=== PATIENT | male | born 1945 | race Two or more races ===

== ENCOUNTER 2018-10-13 13:08 | Inpatient (IN) | payer OTHER, MEDICAID ==
[2018-10-13] MEDS ORDERED: NS 1,000 ML IV ONE (13:17)
--- NOTE | 2018-10-13 13:17 | EDPHY ---
H & P Time Seen by Provider: 10/13/18 13:08 HPI/ROS: CHIEF COMPLAINT: Altered mental status HISTORY OF PRESENT ILLNESS: History from EMS on arrival is patient is nonverbal. Apparently has a history of some type of recent back procedure, has been unresponsive and febrile since yesterday. Has a most form stating DNR and comfort care measures only. Family is not with the patient on arrival. Remainder of history and review of systems unavailable on arrival because the patient is nonverbal. PAST MEDICAL HISTORY: Per records which arrive include TIA and stroke, vertebral compression fracture, left-sided rib fractures, some other type of pelvis fracture Social history: [facility] resident General Appearance: Unresponsive, nonverbal, opens eyes to voice. No words. Eyes: No scleral icterus. ENT, Mouth: Normal mucous membranes. Respiratory: Hypoxic, coarse breath sounds bilaterally. Cardiovascular: Regular rate and rhythm. Tachycardic. Gastrointestinal: Abdomen is soft and non tender. Neurological: Patient is nonverbal, opens eyes to voice. Withdraws to pain. Skin: Warm and dry, no rashes. Do not see any evidence of open wounds on the back or redness or decubitus ulcer on the sacral area or on either leg. Musculoskeletal: No peripheral edema. Psychiatric: Unable, nonverbal. Emergency Department course/MDM: Febrile tachycardic and hypoxemic. Plan for i-STAT Chem 8, labs, chest x-ray. Will discuss goals of care with family when they arrive. 1344: Discussion with both daughters were present in the room at this time. They are in agreement that we should honor the patient's wishes on his MOST form , they are also of the opinion that we should make him comfortable but to not do any medical or surgical interventions at this time, not attempt to try and reverse or cure his current illness. We discussed he has multisystem organ failure, likely an acute pneumonia or pulmonary infection. They are aware that by making this decision for comfort care, my clinical impression is that he will have a high likelihood to of his illness during this hospitalization. Constitutional: Initial Vital Signs Temperature (C) 37.8 C 10/13/18 13:12 Heart Rate 141 H 10/13/18 13:12 Respiratory Rate 18 10/13/18 13:12 Blood Pressure 119/96 H 10/13/18 13:12 O2 Sat (%) 94 10/13/18 13:12 O2 Delivery Mode Non-Rebreather Mask O2 (L/minute) 15 Allergies/Adverse Reactions: No Known Allergies Allergy (Unverified 10/13/18 13:12) Medical Decision Making - Diagnostics EKG Interpretation: 12-lead EKG interpreted by me; official reading is in computer system. My interpretation is sinus tachycardia with anterior Q-waves noted and nonspecific repolarization abnormality. Imaging Results: Imaging Impressions Chest X-Ray 10/13/18 13:17 Impression: 1. Left lower lobe consolidation/pneumonia with mild left effusion. 2. Peribronchial cuffing in the perihilar region. Findings are nonspecific but can be seen with bronchitis, viral process, or reactive airways disease. Imaging: I viewed and interpreted images myself Differential Diagnosis: Differential for altered mental status considered including but not limited to sepsis, stroke, intracranial bleed or mass, metabolic or hypoglycemia. Consult/Admit Bed Type: [facility] for Dr. Huston [facility] - Data Points Laboratory Results: Laboratory Results 10/13/18 13:20 10/13/18 13:20 10/13/18 10/13/18 10/13/18 13:38 13:20 13:20 WBC RBC Hgb POC Hgb 15.3 gm/dL gm/dL (13.7-17.5) Hct POC Hct 45 % % (40-51) MCV MCH MCHC RDW Plt Count MPV Neut % (Auto) Lymph % (Auto) [place] % (Auto) Eos % (Auto) Baso % (Auto) Nucleat RBC Rel Count Absolute Neuts (auto) Absolute Lymphs (auto) Absolute Monos (auto) Absolute Eos (auto) Absolute Basos (auto) Absolute Nucleated RBC Immature Gran % Immature Gran # Platelet Estimate VBG Lactic Acid 2.8 mmol/L H mmol/L (0.7-2.1) POC Sodium 139 mEq/L mEq/L (135-145) Sodium 136 mEq/L mEq/L (135-145) POC Potassium 4.2 mEq/L mEq/L (3.3-5.0) Potassium 4.5 mEq/L mEq/L (3.5-5.2) POC Chloride 105 mEq/L mEq/L (97-110) Chloride 104 mEq/L mEq/L (97-110) Carbon Dioxide 19 mEq/l L mEq/l (22-31) POC Total CO2 21 mEq/L L mEq/L (22-31) Anion Gap 13 mEq/L mEq/L (6-14) POC BUN 31 mg/dL H mg/dL (7-23) BUN 33 mg/dL H mg/dL (7-23) Creatinine 2.6 mg/dL H mg/dL (0.7-1.3) POC Creatinine 3.1 mg/dL H mg/dL (0.7-1.3) Estimated GFR 24 Glucose 91 mg/dL mg/dL (70-100) POC Glucose 97 mg/dL mg/dL (70-100) Calcium 8.6 mg/dL mg/dL (8.5-10.4) 10/13/18 10/13/18 13:20 13:20 WBC 12.44 10^3/uL H 10^3/uL (3.80-9.50) RBC 5.09 10^6/uL 10^6/uL (4.40-6.38) Hgb 14.6 g/dL g/dL (13.7-17.5) POC Hgb Hct 45.5 % % (40.0-51.0) POC Hct MCV 89.4 fL fL (81.5-99.8) MCH 28.7 pg pg (27.9-34.1) MCHC 32.1 g/dL L g/dL (32.4-36.7) RDW 15.5 % H % (11.5-15.2) Plt Count 371 10^3/uL 10^3/uL (150-400) MPV 9.1 fL fL (8.7-11.7) Neut % (Auto) Pending Lymph % (Auto) Pending [place] % (Auto) Pending Eos % (Auto) Pending Baso % (Auto) Pending Nucleat RBC Rel Count Pending Absolute Neuts (auto) Pending Absolute Lymphs (auto) Pending Absolute Monos (auto) Pending Absolute Eos (auto) Pending Absolute Basos (auto) Pending Absolute Nucleated RBC Pending Immature Gran % Pending Immature Gran # Pending Platelet Estimate Pending VBG Lactic Acid 3.8 mmol/L H mmol/L (0.7-2.1) POC Sodium Sodium POC Potassium Potassium POC Chloride Chloride Carbon Dioxide POC Total CO2 Anion Gap POC BUN BUN Creatinine POC Creatinine Estimated GFR Glucose POC Glucose Calcium Medications Given: Discontinued Medications Sodium Chloride (Ns) 1,000 mls @ 0 mls/hr IV EDNOW ONE; Wide Open PRN Reason: Protocol Stop: 10/13/18 13:18 Last Admin: 10/13/18 13:25 Dose: 1,000 mls Point of Care Test Results: Chemistry 10/13/18 13:20 POC Sodium 139 mEq/L mEq/L (135-145) POC Potassium 4.2 mEq/L mEq/L (3.3-5.0) POC Chloride 105 mEq/L mEq/L (97-110) POC Total CO2 21 mEq/L L mEq/L (22-31) POC BUN 31 mg/dL H mg/dL (7-23) POC Creatinine 3.1 mg/dL H mg/dL (0.7-1.3) POC Glucose 97 mg/dL mg/dL (70-100) ISTAT H&H 10/13/18 13:20 POC Hgb 15.3 gm/dL gm/dL (13.7-17.5) POC Hct 45 % % (40-51) Departure - Departure Disposition: [facility] Inpatient Acute Clinical Impression: Acute encephalopathy, Acute kidney injury Pneumonia Qualifiers: Pneumonia type: due to unspecified organism Laterality: left Lung location: lower lobe of lung Qualified Code(s): J18.1 - Lobar pneumonia, unspecified organism Condition: Serious
[2018-10-13 13:30] LABS: PLATELET COUNT 371 10^3/uL (150-400)
--- NOTE | 2018-10-13 13:48 | CPEKG ---
Test Reason : OPEN Blood Pressure : / mmHG Vent. Rate : 143 BPM Atrial Rate : 143 BPM P-R Int : 107 ms QRS Dur : 070 ms QT Int : 344 ms P-R-T Axes : -18 049 077 degrees QTc Int : 531 ms Sinus tachycardia Atrial premature complex Anteroseptal infarct, old Repolarization abnormality, prob rate related Prolonged QT interval Confirmed by Kirk Singleton ([id number]) on 10/13/2018 1:47:41 PM Referred By: KIRK SINGLETON Confirmed By:Kirk Singleton
[2018-10-13] MEDS ORDERED: SCOPOLAMINE HYDROBROMIDE 1 MG/3 DAYS PATCH TD ONE (14:19)
[2018-10-13] MEDS ORDERED: LORazepam 2 MG/ML INJ IVP PRN (15:31)
[2018-10-13] MEDS ORDERED: morphINE 10 MG/0.5 ML UDSYR PO PRN (15:31)
[2018-10-13] MEDS ORDERED: ONDANSETRON 4 MG/2 ML VIAL IVP PRN (15:31)
[2018-10-13] MEDS ORDERED: LORazepam 1 MG TAB PO PRN (15:31)
[2018-10-13] MEDS ORDERED: ONDANSETRON DISINTEGRATING 4 MG TAB PO PRN (15:31)
[2018-10-13] MEDS ORDERED: SCOPOLAMINE HYDROBROMIDE 1 MG/3 DAYS PATCH TD PRN (15:31)
[2018-10-13] MEDS ORDERED: HALOPERIDOL LACT 5 MG/ML INJ IVP PRN (15:31)
--- NOTE | 2018-10-13 15:38 | PDGENHP ---
History and Physical - Chief Complaint Encephalopathy - History of Present Illness 73 yo male custodial patient arrives with confusion, fever, and minimal responsiveness. Has a most form stating DNR and comfort care measures only. He is here with his 2 daughters. His eldest daughter is the medical POA per their communication to me. The pt's family goals are to keep him comfortable. He does not follow commands. He can open his eyes. Translation is provided by the [facility]. He denies pain or discomfort. He has increased work of breathing. Discussion with both daughters were present in the room at this time. They are in agreement that we should honor the patient's wishes on his MOST form, they are also of the opinion that we should make him comfortable but to not do any medical or surgical interventions at this time, not attempt to try and reverse or cure his current illness. PAST MEDICAL HISTORY: TIA and stroke, vertebral compression fracture, left- sided rib fractures, some other type of pelvis fracture Social history: [facility] resident FmHx: non contributory History Information - Allergies/Home Medication List Allergies/Adverse Reactions: No Known Allergies Allergy (Unverified 10/13/18 13:12) Home Medications: Acetaminophen [Tylenol 325mg (*)] 650 mg PO TID 10/13/18 [Last Taken Unknown] DULoxetine [Cymbalta 30 MG (*)] 30 mg PO DAILY 10/13/18 [Last Taken Unknown] Gabapentin [Neurontin 100 MG (*)] 200 mg PO TID 10/13/18 [Last Taken Unknown] Lidocaine 4%/Menthol 1% [Icy Hot Lidocaine/Menthol 4%/1% Patch (*)] 1 patch TD DAILY 10/13/18 [Last Taken Unknown] Naproxen Sodium [Naprelan] 500 mg PO BID 10/13/18 [Last Taken Unknown] Sennosides/Docusate Sodium [Senna-Docusate Sodium Tablet] 1 each PO BID [Last Taken Unknown] oxyCODONE IR [Oxycodone Ir (*)] 5 mg PO Q3HRS PRN 10/13/18 [Last Taken Unknown] I have personally reviewed and updated: medical history, social history Review of Systems Review of Systems: ROS: 10pt was reviewed & negative except for what was stated in HPI & below Physical Exam Physical Exam: Temp Pulse Resp BP Pulse Ox 38.2 C 133 H 18 89/53 L 88 L 10/13/18 14:56 10/13/18 14:56 10/13/18 14:56 10/13/18 14:56 10/13/18 14:56 O2 (L/minute) 10 Constitutional: no apparent distress, chronically ill appearing Eyes: PERRL, EOMI Ears, Nose, Mouth, Throat: dry mucous membranes Cardiovascular: tachycardia, edema Respiratory: respiratory distress Gastrointestinal: normoactive bowel sounds, soft, non-tender abdomen Skin: warm Neurologic: No AAOx3 Psychiatric: interacting appropriately, not anxious, encephalopathic Lymph, Heme, Immunologic: No petechiae Lab Data & Imaging Review 10/13/18 13:20 10/13/18 13:20 WBC 12.44 10^3/uL (3.80-9.50) H 10/13/18 13:20 RBC 5.09 10^6/uL (4.40-6.38) 10/13/18 13:20 Hgb 14.6 g/dL (13.7-17.5) 10/13/18 13:20 POC Hgb 15.3 gm/dL (13.7-17.5) 10/13/18 13:20 Hct 45.5 % (40.0-51.0) 10/13/18 13:20 POC Hct 45 % (40-51) 10/13/18 13:20 MCV 89.4 fL (81.5-99.8) 10/13/18 13:20 MCH 28.7 pg (27.9-34.1) 10/13/18 13:20 MCHC 32.1 g/dL (32.4-36.7) L 10/13/18 13:20 RDW 15.5 % (11.5-15.2) H 10/13/18 13:20 Plt Count 371 10^3/uL (150-400) 10/13/18 13:20 MPV 9.1 fL (8.7-11.7) 10/13/18 13:20 Neut % (Auto) Not Reported 10/13/18 13:20 Lymph % (Auto) Not Reported 10/13/18 13:20 [place] % (Auto) Not Reported 10/13/18 13:20 Eos % (Auto) Not Reported 10/13/18 13:20 Baso % (Auto) Not Reported 10/13/18 13:20 Nucleat RBC Rel Count Not Reported 10/13/18 13:20 Absolute Neuts (auto) Not Reported 10/13/18 13:20 Absolute Lymphs (auto) Not Reported 10/13/18 13:20 Absolute Monos (auto) Not Reported 10/13/18 13:20 Absolute Eos (auto) Not Reported 10/13/18 13:20 Absolute Basos (auto) Not Reported 10/13/18 13:20 Absolute Nucleated RBC Not Reported 10/13/18 13:20 Immature Gran % Not Reported 10/13/18 13:20 Seg Neutrophils % 50.0 % 10/13/18 13:20 Band Neutrophils % 5.0 % 10/13/18 13:20 Lymphocytes % 39.0 % 10/13/18 13:20 Monocytes % 4.0 % 10/13/18 13:20 Eosinophils % 0.0 % 10/13/18 13:20 Basophils % 2.0 % 10/13/18 13:20 Metamyelocytes % 0.0 % 10/13/18 13:20 Myelocytes % 0.0 % 10/13/18 13:20 Promyelocytes % 0.0 % 10/13/18 13:20 Blast Cells % 0.0 % 10/13/18 13:20 Immature Gran # Not Reported 10/13/18 13:20 Absolute Seg Neuts 6.22 10^3/uL (1.70-6.50) 10/13/18 13:20 Absolute Band Neuts 0.62 10^3/uL (0.00-0.70) 10/13/18 13:20 Absolute Lymphocytes 4.85 10^3/uL (1.00-3.00) H 10/13/18 13:20 Absolute Monocytes 0.50 10^3/uL (0.30-0.80) 10/13/18 13:20 Absolute Eosinophils 0.00 10^3/uL (0.03-0.40) L 10/13/18 13:20 Absolute Basophils 0.25 10^3/uL (0.02-0.10) H 10/13/18 13:20 Absolute Metamyelocyte 0.00 10^3/mL (0.00-0.00) 10/13/18 13:20 Absolute Myelocytes 0.00 10^3/mL (0.00-0.00) 10/13/18 13:20 Absolute Promyelocytes 0.00 10^3/uL (0.00-0.00) 10/13/18 13:20 Absolute Plasma Cells 0.00 10^3/uL (0.00-0.00) 10/13/18 13:20 Differential Comment SEE COMMENT 10/13/18 13:20 Absolute Blast Cells 0.00 10^3/uL (0.00-0.00) 10/13/18 13:20 Plasma Cells % 0.0 % 10/13/18 13:20 Platelet Estimate ADEQUATE (ADEQ) 10/13/18 13:20 Polychromasia 1+ H 10/13/18 13:20 VBG Lactic Acid 2.8 mmol/L (0.7-2.1) H 10/13/18 13:38 POC Sodium 139 mEq/L (135-145) 10/13/18 13:20 Sodium 136 mEq/L (135-145) 10/13/18 13:20 POC Potassium 4.2 mEq/L (3.3-5.0) 10/13/18 13:20 Potassium 4.5 mEq/L (3.5-5.2) 10/13/18 13:20 POC Chloride 105 mEq/L (97-110) 10/13/18 13:20 Chloride 104 mEq/L (97-110) 10/13/18 13:20 Carbon Dioxide 19 mEq/l (22-31) L 10/13/18 13:20 POC Total CO2 21 mEq/L (22-31) L 10/13/18 13:20 Anion Gap 13 mEq/L (6-14) 10/13/18 13:20 POC BUN 31 mg/dL (7-23) H 10/13/18 13:20 BUN 33 mg/dL (7-23) H 10/13/18 13:20 Creatinine 2.6 mg/dL (0.7-1.3) H 10/13/18 13:20 POC Creatinine 3.1 mg/dL (0.7-1.3) H 10/13/18 13:20 Estimated GFR 24 10/13/18 13:20 Glucose 91 mg/dL (70-100) 05/29/19 13:20 POC Glucose 97 mg/dL (70-100) 10/13/18 13:20 Calcium 8.6 mg/dL (8.5-10.4) 10/13/18 13:20 Assessment & Plan Assessment: #Acute encephalopathy #Acute kidney injury #Pneumonia #Acute Respiratory Failure #Multiorgan Failure #Sepsis Plan: The pt is critically ill. He has a MOST form indicating comfort care measures only and DNR. I had a long discussion with the family. They requested that we make him comfortable. They also asked if we could treat his infection. We discussed what that would look like including IV abx, IVF fluids, Pressors, Central line, and likely intubation. After some thoughts, the pt's family and medical POA agrees to honor the MOST form. They are in agreement with comfort care only. Palliative Care Hospice consult
--- NOTE | 2018-10-13 16:19 | ASMTCMCOM ---
CM Note CM Note Notes: Pt presented to the ED via EMS from [facility] for AMS. Pt's MOST form states pt wishes to receive Comfort Measures only but pt's daughters, Annia and Xiomy, wanted the pt transported to the ED. Annia Pate ([phone]) and her sister, Breann Harris "Xiomy" Herlinda ([phone]) arrived to the ED and was met by CM in the ED waiting area. ED Provider Dr Banks spoke w/Annia and Xiomy at bedside re:pt's poor prognosis. Annia and Xiomy are understandably emotionally upset and in shock, stating the pt "was fine yesterday" and needing to have comfort care measures and plan of care reiterated frequently. CM offered to provide interpretative services throughout the ED visit but Annia and Xiomy declined and said they would let us know if they didn't understand something. Ultimately Annia and Xiomy have decided to honor the pt's MOST form wishes and provide comfort care only. CM provided emotional support and various assistance as needed. Pt recently was admitted to [facility] from [facility] about a week ago. Pt was living w/Annia in [place] prior to moving into [facility]. Pt had also visited [place] recently (which he has been doing a couple of times a year; he has a brother who lives there) before getting admitted to [facility] a few weeks ago. Per Annia pt has had multiple falls while visiting in [place]. Xiomy lives in [place] and has a returning flight tonight but plans on canceling it; Xiomy aware that if she needs an airline excuse letter to please let CM, RN or the Hospitalist know. CM offered to have Spiritual Services come and provide them w/additional emotional support, etc. but Annia and Xiomy both declined at this time. The pt, Annia and Xiomy are [employer] and aware that our Spiritual Services team can provide [employer] prayers, support, etc. They say they will reach out if they change their mind. CM called [facility] and notified them of pt's admission for comfort care. Spoke w/Rogelio and she states that they would be able to offer and assist with coordinating pt's return to as [facility] w[facility] if needed. CM to follow. Date Signed: 10/13/2018 04:17 PM Electronically Signed By:Nubia Green RN
--- NOTE | 2018-10-13 19:32 | PDMN ---
Medical Necessity Medical necessity: Pt meets IP criteria per MD & MCG M-160; est los >2 mn for eval/tx of sepsis due to pneumonia w/multiple organ failure; pt critically ill; admit for comfort care measures & Hospice consult; per H&P & order 10/13/18
[2018-10-13 21:57] VITALS: BP 74/50
--- NOTE | 2018-10-14 02:56 | HOSPPROG ---
Hospitalist Progress Note Assessment/Plan: Patient admitted critically ill with pneumonia. He was a DNR. Patient time of reported 0243 Per RN patient advent requires body remain untouched for 8-12 hours, corner notified. Objective: Vital Signs Temp Pulse Resp BP Pulse Ox 39.9 C H 144 H 18 74/50 L 93 10/13/18 20:00 10/13/18 20:00 10/13/18 20:00 10/13/18 20:00 10/13/18 20:00 10/12/18 10/13/18 10/14/18 05:59 05:59 05:59 Intake Total 3500 Output Total 0 Balance 3500 ICD10 Worksheet Patient Problems: Problems Problem Status Onset Acute encephalopathy Acute Acute kidney injury Acute Pneumonia Acute
--- NOTE | 2018-10-14 13:30 | PDDCSUM ---
Discharge Summary Discharge Summary: this is a 73 yo male who was admitted on comfort care for pain and symptom management. He had pneumonia, sepsis, and multiorgan failure on admission. The pt had a MOST form indicating comfort measures only and DNR. This was confirmed with the pt's family and his medical POA. His comfort care wishes were honored. The patient was kept comfortable overnight. Support services were offered. Early this morning, the patient . Time of : 10/14 Discharge DX #Acute encephalopathy #Acute kidney injury #Pneumonia #Acute Respiratory Failure #Multiorgan Failure #Sepsis #comfort measures
[2018-10-14] MEDS ORDERED: PATCH REMOVAL 1 EA PATCH TD SCH (14:20)
== END 2018-10-14 11:39 | disposition expired | DRG 871 ==
LOC: F3E 14:42
PROVIDERS: ADMIT Family Medicine; ATTEND Family Medicine
DX: A41.9 Sepsis, unspecified organism (principal); J18.9 Pneumonia, unspecified organism; G93.49 Other encephalopathy; N17.9 Acute kidney failure, unspecified; Z51.5 Encounter for palliative care; Z66 Do not resuscitate; E86.9 Volume depletion, unspecified
CPT/HCPCS: 82435-PO; 82565-PO; 82947-PO; 84132-PO; 84295-PO; 84520-PO; 85014-ER; 96374; J2270